=== PATIENT | female | born 1980 | race Caucasian/White ===

== ENCOUNTER 2018-08-28 20:11 | Emergency (ER) | payer BC ==
--- NOTE | 2018-08-28 20:33 | ER Report ---
History and Physical Time Seen By : 20:33 Hx. of Stated Complaint: pt had 2 thc gummies this evening around 5pm. anxiety attack (MOUNIKA GALVEZ) HPI/ROS CHIEF COMPLAINT: Possible anxiety HISTORY OF PRESENT ILLNESS: This is a 38-year-old female who presents to the emergency department via EMS for anxiety attack. Patient states that she has had difficulty sleeping, her gave her 2 THC containing gum eases evening and began to feel very anxious, so much so that she contacted the [employer] [facility], I sent deputies out for evaluation, they called EMS subsequently EMS transported the patient to the emergency department. She arrives very anxious, no chest pain or shortness of breath. Mild nausea no vomiting. No hallucinations, no suicidal or homicidal ideations. No headaches, no rashes. REVIEW OF SYSTEMS: Constitutional: No fever, no chills. Eyes: No discharge. ENT: No sore throat. Cardiovascular: No chest pain, no palpitations. Respiratory: No cough, no shortness of breath. Gastrointestinal: No abdominal pain, no vomiting. Genitourinary: No hematuria. Musculoskeletal: No back pain. Skin: No rashes. Neurological: No headache. Psychological: As above. (MOUNIKA GALVEZ) Allergies: Coded Allergies: No Known Drug Allergies (Verified , 06/02/13) Home Meds Discontinued Scripts Ondansetron (ZOFRAN ODT) 8 Mg Tab.rapdis, 8 MG PO Q8H, #10 TAB TAKE 1 TABLET BY MOUTH EVERY 8 HOURS Prov:CYNTHIA NEGRO MD 06/02/13 Oxycodone Hcl/Acetaminophen (PERCOCET 5-325 MG TABLET) 1 Each Tablet, 1 EACH PO Q6H, #10 TAB Prov:CYNTHIA NEGRO MD 06/02/13 Past Medical/Surgical History The patient has a past medical and surgical history of anxiety, vein stripping and legs. (MOUNIKA GALVEZ) Reviewed Nurses Notes: Yes (MOUNIKA GALVEZ) Hx Smoking: No Hx Substance Use Disorder: No Hx Alcohol Use: No (MOUNIKA GALVEZ) Constitutional Vital Sign - Last 24 Hours 08/28/18 20:14 Temp 98.0 Pulse 97 Resp 22 B/P (MAP) 140/97 Pulse Ox 92 O2 Delivery Room Air (ALEXEI MALIK MD) Physical Exam General Appearance: The patient is alert, has no immediate need for airway protection and no signs of toxicity, hyperventilating, very anxious, eyes closed. Eyes: 4 mm, Pupils equal and round no pallor or injection. There is faint lateral nystagmus bilaterally. ENT, Mouth: Mucous membranes are dry. Respiratory: There are no retractions, lungs are clear to auscultation. Cardiovascular: Regular rate and rhythm. Gastrointestinal: Abdomen is soft and non tender, no masses, bowel sounds normal. Neurological: Alert and oriented 4. Moving all extremities. Following all commands. No focal neuro deficits. Skin: Warm and dry, no rashes. Musculoskeletal: Neck is supple non tender. Extremities are nontender, nonswollen and have full range of motion. Psychological: Very anxious, blanket wrapped around the shoulders, eyes closed, a head tipped forward, rapid breathing, rapid speech and mumbling, following commands, very anxious. DIFFERENTIAL DIAGNOSIS: After history and physical exam differential diagnosis was considered for THC overdose, adverse reaction to drugs, anxiety, potential toxic his composure to other agents. (MOUNIKA GALVEZ [facility]) Medical Decision Making Data Points Result Diagram: 08/28/18210508/28/182105 Laboratory Hematology Test 08/28/18 21:06 08/28/18 21:50 Red Blood Count 4.71 M/uL (4.17-5.56) Mean Corpuscular Volume 92.2 fL (80.0-96.0) Mean Corpuscular Hemoglobin 31.8 pg (26.0-33.0) Mean Corpuscular Hemoglobin Concent 34.5 g/dL (32.0-36.0) Red Cell Distribution Width 12.9 % (11.5-14.5) Mean Platelet Volume 7.0 fL (7.2-11.1) Neutrophils (%) (Auto) 62.1 % (39.4-72.5) Lymphocytes (%) (Auto) 27.5 % (17.6-49.6) Monocytes (%) (Auto) 8.3 % (4.1-12.4) Eosinophils (%) (Auto) 1.6 % (0.4-6.7) Basophils (%) (Auto) 0.5 % (0.3-1.4) Nucleated RBC Relative Count (auto) 0.0 /100WBC Neutrophils # (Auto) 5.0 K/uL (2.0-7.4) Lymphocytes # (Auto) 2.2 K/uL (1.3-3.6) Monocytes # (Auto) 0.7 K/uL (0.3-1.0) Eosinophils # (Auto) 0.1 K/uL (0.0-0.5) Basophils # (Auto) 0.0 K/uL (0.0-0.1) Nucleated RBC Absolute Count (auto) 0.00 K/uL Sodium Level 141 mmol/L (137-145) Potassium Level 3.7 mmol/L (3.5-5.0) Chloride Level 103 mmol/L (98-107) Carbon Dioxide Level 26 mmol/L (22-31) Blood Urea Nitrogen 12 mg/dl (7-18) Creatinine 0.90 mg/dl (0.52-1.04) Glomerular Filtration Rate Calc > 60.0 Random Glucose 99 mg/dl (75-110) Calcium Level 9.4 mg/dl (8.4-10.2) Urine Opiates Screen Negative Urine Barbiturates Screen Negative Ur Tricyclic Antidepressants Screen Negative Urine Phencyclidine Screen Negative Urine Amphetamines Screen Negative Urine Benzodiazepines Screen Negative Urine Cocaine Screen Negative Urine Cannabinoids Screen Positive Chemistry Test 08/28/18 21:06 08/28/18 21:50 White Blood Count 8.1 k/uL (4.5-11.0) Red Blood Count 4.71 M/uL (4.17-5.56) Hemoglobin 15.0 g/dL (12.0-16.0) Hematocrit 43.4 % (34.0-47.0) Mean Corpuscular Volume 92.2 fL (80.0-96.0) Mean Corpuscular Hemoglobin 31.8 pg (26.0-33.0) Mean Corpuscular Hemoglobin Concent 34.5 g/dL (32.0-36.0) Red Cell Distribution Width 12.9 % (11.5-14.5) Platelet Count 348 K/uL (150-450) Mean Platelet Volume 7.0 fL (7.2-11.1) Neutrophils (%) (Auto) 62.1 % (39.4-72.5) Lymphocytes (%) (Auto) 27.5 % (17.6-49.6) Monocytes (%) (Auto) 8.3 % (4.1-12.4) Eosinophils (%) (Auto) 1.6 % (0.4-6.7) Basophils (%) (Auto) 0.5 % (0.3-1.4) Nucleated RBC Relative Count (auto) 0.0 /100WBC Neutrophils # (Auto) 5.0 K/uL (2.0-7.4) Lymphocytes # (Auto) 2.2 K/uL (1.3-3.6) Monocytes # (Auto) 0.7 K/uL (0.3-1.0) Eosinophils # (Auto) 0.1 K/uL (0.0-0.5) Basophils # (Auto) 0.0 K/uL (0.0-0.1) Nucleated RBC Absolute Count (auto) 0.00 K/uL Glomerular Filtration Rate Calc > 60.0 Calcium Level 9.4 mg/dl (8.4-10.2) Urine Opiates Screen Negative Urine Barbiturates Screen Negative Ur Tricyclic Antidepressants Screen Negative Urine Phencyclidine Screen Negative Urine Amphetamines Screen Negative Urine Benzodiazepines Screen Negative Urine Cocaine Screen Negative Urine Cannabinoids Screen Positive Toxicology Test 08/28/18 21:50 Urine Opiates Screen Negative Urine Barbiturates Screen Negative Ur Tricyclic Antidepressants Screen Negative Urine Phencyclidine Screen Negative Urine Amphetamines Screen Negative Urine Benzodiazepines Screen Negative Urine Cocaine Screen Negative Urine Cannabinoids Screen Positive (ALEXEI MALIK MD) ED Course/Re-evaluation Clinical Indication for ER IV: Hydration, IV Access ED Course 08/28/2018 9:10:12 pm the patient's was reluctant for any intervention, I did offer IV fluids and checking basic blood work and UDS to make sure there is no other exposure to any other illicit drugs. Patient did agree to basic blood work and fluids. Decision to Disposition Date: Aug 28, 2018 Decision to Disposition Time: 21:15 Turned Over The care of the patient was turned over to Dr. Malik. KANNAN Haile I authorize my typed signature that I authenticated this report. (MOUNIKA GALVEZ-) ED Course Pt somewhat improved after ED evaluation. Findings c/w reaction to cannabis. Comfortable for d/c to home. Understands SRP's for any concerns about her safety. Decision to Disposition Date: Aug 28, 2018 Decision to Disposition Time: 22:43 (ALEXEI MALIK MD) Depart Departure Latest Vital Signs Vital Signs Date Time Temp Pulse Resp B/P (MAP) Pulse Ox O2 Delivery O2 Flow Rate FiO2 08/28/18 20:14 98.0 97 22 140/97 92 Room Air (ALEXEI MALIK MD) Impression: Primary Impression: Acute anxiety Additional Impression: Drug reaction Condition: Improved Disposition: HOME OR SELF-CARE Patient Instructions: Anxiety (ED), Cannabis Abuse (ED) Additional Instructions: Please return immediately for any concerns about your safety or any other concerning symptoms. Problem Qualifiers Additional Impression: Drug reaction Encounter type: initial encounter Qualified Codes: T50.905A - Adverse effect of unspecified drugs, medicaments and biological substances, initial encounter MOUNIKA GALVEZ [employer] Aug 28, 2018 20:33 ALEXEI MALIK MD Aug 28, 2018 22:46
[2018-08-28] MEDS ORDERED: NS(*) 0.9% 1000 ML BAG 1,000 ML IV ONE (20:45)
[2018-08-28] MEDS ORDERED: ONDANSETRON 4 MG/2 ML VIAL IVP ONE (20:45)
[2018-08-28 21:24] LABS: PLATELET COUNT, AUTOMATED 348 K/uL (150-450)
[2018-08-28 21:30] VITALS: BP 121/84
[2018-08-28] MEDS ORDERED: DIAZEPAM 50 MG/10 ML MDV IM ONE (22:20)
[2018-08-28] MEDS ORDERED: DIAZEPAM 5 MG TAB TH 2 TAB/BOTTLE PO ONE (22:45)
== END 2018-08-28 23:30 | disposition home or self-care (01) ==
LOC: ER 20:51
DX: F12.980 Cannabis use, unspecified with anxiety disorder (principal); T50.905A Adverse effect of unspecified drugs, medicaments and biological substances, initial encounter
CPT/HCPCS: 80305; 85025; 96361; 96372; 96374; 99284; J2405; J3360; J7030; 82310; 82374; 82435; 82565; 82947; 84132; 84295; 84520

== ENCOUNTER → 2018-08-28 | Outpatient (CLI) | payer BC ==
[~2018-08-28] MED LIST: IBUP-1618 PO; ONDA8TAB94 PO; OXYC-865 PO; PREN-85 PO
== END ==
LOC: AMB 19:35
PROVIDERS: ATTEND Nurse Practitioner
DX: F12.980 Cannabis use, unspecified with anxiety disorder (principal); R06.4 Hyperventilation; R42 Dizziness and giddiness
CPT/HCPCS: A0425; A0429